=== PATIENT | female | born 1990 | race Caucasian/White ===

== ENCOUNTER 2022-11-01 01:01 | Inpatient (IN) ==
[2022-11-01] MEDS ORDERED: Promethazine INJ(RESTRICTED) 25 MG/ML 1 ml VIAL IV PRN (01:33)
[2022-11-01] MEDS ORDERED: Lactated Ringers 1000 ml BAG 1,000 ML IV ONE ×2 (01:33→16:28)
[2022-11-01] MEDS ORDERED: Nalbuphine 10 MG/ML 1 ML VIAL IV PRN (01:33)
[2022-11-01] MEDS ORDERED: Buffered Lidocaine 1% SYRIN 1 ml INTRADERM ONE (01:33)
[2022-11-01] MEDS ORDERED: Lactated Ringers 1000 ml BAG 1,000 ML IV SCH ×3 (02:00→23:45)
[2022-11-01 02:27] LABS: Urine Benzodiazepine Screen None Detected (None Detect); Urine Opiates Screen None Detected (None Detect)
[2022-11-01] MEDS ORDERED: Oxytocin in LR 20,000 MILLI.UNIT/1,000 ML BAG IV SCH ×2 (12:45→23:30)
[2022-11-01 15:40] LABS: ABS Lymphocytes 1.4 10^3/ul (1.0-4.8); ABS Monocytes 0.5 10^3/ul (0-0.8); ABS Neutrophils 7.9 10^3/ul (1.5-7.7); Eosinophil % 0.2 %; Hematocrit 37 % (35-47); Hemoglobin 11.9 g/dL (12.0-16.0); Mean Corpuscular HGB Conc 33 g/dL (31-36); Mean Corpuscular Hemoglobin 31 pg (27-31); Mean Corpuscular Volume 94 fL (80-97); Mean Platelet Volume 11.2 fL (7.4-10.4); Platelet Count 213 10^3/uL (150-450); Red Blood Count 3.89 10^6 /uL (3.70-4.87); Red Cell Distribution Width 14 % (10-15); White Blood Count 9.9 10^3/uL (3.5-10.8)
[2022-11-01] MEDS ORDERED: OBEPIDURAL (200 ML) 200 ML EPIDURAL ONE (15:52)
[2022-11-01] MEDS ORDERED: Lidocaine 1% w EPI 1:200,000 SDV 30 ML VIAL ONE (15:54)
[2022-11-01] MEDS ORDERED: Lactated Ringers 1000 ml BAG 500 ML IV PRN ×2 (16:28)
[2022-11-01] MEDS ORDERED: Phenylephrine 40 mcg/mL 10mL (400mcg) SYRINGE IV PUSH PRN ×2 (16:28)
[2022-11-01] MEDS ORDERED: Sodium Citrate/Citric Acid LIQ 15 ML UDC PO PRN (16:28)
[2022-11-01] MEDS ORDERED: OBEPIDURAL (200 ML) 200 ML EPIDURAL SCH (17:00)
[2022-11-01 17:14] LABS: Urine Appearance Clear; Urine Bilirubin Negative (Negative); Urine Blood 2+ (Negative); Urine Color Yellow; Urine Glucose Negative (Negative); Urine Ketones Trace (Negative); Urine Nitrite Negative (Negative); Urine Protein Negative (Negative); Urine Urobilinogen Negative (Negative)
[2022-11-01 17:18] LABS: Urine Bacteria 1+ (Absent); Urine Cellular Casts Present (Absent); Urine Red Blood Cell 2+(6-10/hpf) (Absent); Urine Squamous Epithelial Cell Present (Absent); Urine White Blood Cell Trace(0-5/hpf) (Absent)
[2022-11-01] MEDS ORDERED: fentaNYL 100 mcg/2 ml 50 MCG/ML VIAL ONE (19:53)
[2022-11-01] MEDS ORDERED: Bupivacaine 0.25% SDV PF 10 ML VIAL INJ ONE (19:53)
[2022-11-01] MEDS ORDERED: Glycerin ADULT 2.4 gm SUPP PR PRN (23:27)
[2022-11-01] MEDS ORDERED: Dibucaine 1% OINT 28.35 GM TUBE PR PRN (23:27)
[2022-11-01] MEDS ORDERED: Witch Hazel PAD JAR TOPICAL PRN (23:27)
[2022-11-02 06:15] LABS: Hematocrit 30 % (35-47); Hemoglobin 10.2 g/dL (12.0-16.0)
[2022-11-03 08:41] VITALS: BP 129/65
== END 2022-11-03 17:56 | disposition home or self-care (01) | DRG 807 ==
LOC: MCHOBOUT 01:01 → MCHOB 01:28
PROVIDERS: ADMIT Registered Nurse; ATTEND Registered Nurse